=== PATIENT | male | born 1970 | race Caucasian/White ===

== ENCOUNTER 2017-12-22 10:25 | Emergency (ER) | payer OTHER ==
--- NOTE | 2017-12-22 10:31 | EDPHY ---
H & P Source: Patient, RN/MD, EMS Exam Limitations: No limitations Time Seen by Provider: 12/22/17 10:31 HPI/ROS: HPI: This is a 47-year-old male who presents with Chief Complaint: Back pain x2 days Location: Left buttock Quality: Radiating pain Duration: 3 weeks Signs and Symptoms: No bleeding, + radiation from lower back and left buttock down into left posterior thigh, no numbness, no weakness, no tingling, no incontinence, + decreased range of motion, no swelling, + pain, no fever Timing: Worse today Severity: 10 out 10 Context: Patient presents via EMS, with gradually worsening, lower back pain and left buttock pain over the last 3 weeks. This morning he was unable to get out of bed without severe 10/10 radiating pain into his left buttock and left posterior thigh. He reports the pain is intense, sharp, burning, constant. Flexion, extension, rotation increases the pain. He may have had an injury lifting 3 weeks ago but he is"unsure." He reports he has a history of sciatica but has never had been followed by primary care provider and received imaging outpatient. Denies weakness, paresthesias. Modifying Factors: En route EMS gave 100 mcg of fentanyl with no relief Comment: ROS: A comprehensive 10 system review of systems is otherwise negative aside from elements mentioned in the history of present illness. MEDICAL/SURGICAL/SOCIAL HISTORY: Medical history: Generally healthy. Does not take any regular medications. Surgical history: Denies Social history: Employed. CONSTITUTIONAL: Anxious, mild distress, middle-aged white male, lying flat on his back on the ER stretcher, awake and alert HEENT: Atraumatic and normocephalic. NECK: supple, no midline tenderness, flexion 45 degrees, extension 45 degrees, right and left lateral flexion 45 degrees. No meningismus. Cardiovascular: Normal S1/S2, regular rate, regular rhythm, without murmur rub or gallop. PULMONARY/CHEST: Symmetrical and nontender. no crepitus. Clear to auscultation bilaterally. Good air movement. No accessory muscle usage. ABDOMEN: Soft, nondistended, nontender, no ecchymosis. PELVIC: no pain with rocking; bilateral hips flexion 125 degrees, extension 30 degrees, with no pain internal rotation and no pain external rotation. BACK: Lower lumbar reproducible midline tenderness, no paraspinous spasm, deep tendon reflexes 2/2, moderate pain with left straight leg raise, mild pain with right leg straight raise, No foot drop. Achilles reflexes are equal bilaterally. Significant pain increased with transfer in the bed from side to side. EXTREMITIES: 2/2 pulses, strength 5/5, DIP/PIP/MCP flexion/extension intact with good light touch sensation. no deformities, no clubbing, no cyanosis or edema. NEUROLOGICAL: no focal neuro deficits. GCS 15. Light touch sensation intact. SKIN: Warm and dry, no erythema. no rash. Good capillary refill. (Sagrario Jack) Constitutional: Initial Vital Signs Temperature (C) 36.9 C 12/22/17 10:35 Heart Rate 55 L 12/22/17 10:35 Respiratory Rate 16 12/22/17 10:35 Blood Pressure 144/91 H 12/22/17 10:35 O2 Sat (%) 97 12/22/17 10:35 O2 Delivery Mode Room Air Allergies/Adverse Reactions: No Known Allergies Allergy (Unverified 12/22/17 10:34) Home Medications: Medication Instructions Recorded Diazepam [Valium 5 MG (*)] 5 mg PO Q8 PRN #12 tab 12/22/17 methylPREDNISolone [Medrol Dose 1 each PO AD #0 ea 12/22/17 Gerson] oxyCODONE IR [Oxycodone Ir (*)] 5 - 10 mg PO Q6 PRN #12 tab 12/22/17 Medical Decision Making - Diagnostics Imaging Results: Imaging Impressions Lumbar Spine MRI 12/22/17 10:34 Impression: 1. L5-S1: Left foraminal/extraforaminal disk/osteophyte complex versus disk protrusion causing severe left neural foraminal stenosis with probable compression of the exiting left L5 nerve root, with mild right neural foraminal stenosis. 2. T11-T12: Tiny left subarticular disk protrusion without significant spinal canal narrowing or neural foraminal stenosis. 3. Please see above findings at specific disk levels. Findings discussed with Sagrario Jack on 12/22/2017 at 13:23. ED Course/Re-evaluation: I did not see this patient while he was in the emergency department. However his care is discussed with the PA while the patient is in the department. I agree with treatment plan and management (Harpal Brennan) Vital signs reviewed upon arrival. IV access obtained. Patient given IV Toradol 15 mg, IV Decadron 8 mg, IV Valium 5 mg, Lidoderm patch and p.o. Gabapentin upon arrival MRI of the lumbar spine ordered due to midline tenderness. 1122: Patient returned from MRI as unable to tolerate secondary to pain. 2 mg IV Dilaudid given. 1245: Patient ambulated without assistance to the bathroom and back. 1330: Called by Radiology, Dr. Palacios who reports MRI lumbar spine shows left foraminal disc herniation L5-S1 mild in nature with no significant canal involvement there is foraminal involvement at the L5-S1. Reassessed patient who is ambulatory with slow shuffling gait. Significant other at bedside. Given a prescription for Medrol Dosepak, oxycodone, Valium with Neurosurgery follow-up No signs of neurovascular compromise/tenting of skin/compartment syndrome/ extremities and joints examined above and below area of concern and are neurovascularly intact/cauda equina syndrome/epidural hematoma/diskitis. This patient was seen under the supervision of my secondary supervising physician. I evaluated care for this patient independently. Discussed this patient with Dr. Brennan. (Sagrario Jack) Differential Diagnosis: Back pain including but not limited to muscular pain, herniated disc, spine fracture, intra-abdominal causes and urinary tract infection. (Sagrario Jack) - Data Points Medications Given: Discontinued Medications Dexamethasone (Decadron Injection) 8 mg IVP EDNOW ONE Stop: 12/22/17 10:35 Last Admin: 12/22/17 10:50 Dose: 8 mg Diazepam (Valium) 5 mg IVP EDNOW ONE Stop: 12/22/17 10:35 Last Admin: 12/22/17 10:49 Dose: 5 mg Gabapentin (Neurontin) 600 mg PO EDNOW ONE Stop: 12/22/17 10:35 Last Admin: 12/22/17 10:47 Dose: 600 mg Hydromorphone HCl (Dilaudid) 2 mg IVP EDNOW ONE Stop: 12/22/17 11:54 Last Admin: 12/22/17 11:59 Dose: 2 mg Ketorolac Tromethamine (Toradol) 15 mg IVP EDNOW ONE Stop: 12/22/17 10:35 Last Admin: 12/22/17 10:48 Dose: 15 mg Miscellaneous Medication (Icy Hot Lidocaine/Menthol 4%/1% Patch) 1 patch TD EDNOW ONE Stop: 12/22/17 10:35 Last Admin: 12/22/17 10:54 Dose: 1 patch Departure - Departure Disposition: Home, Routine, Self-Care Clinical Impression: Lumbar disc herniation with radiculopathy Condition: Good Instructions: Lumbar Disc Herniation (ED) Additional Instructions: Take Tylenol 650 mg every 4 hours and/or Ibuprofen 600 mg every 8 hours with food as needed for pain. Use oxycodone every 6 hours as needed for severe/break through pain. Use Valium every 8 hr as needed for muscle spasms. Take Medrol Dosepak as directed. Start taking the steroids tomorrow. Tried to walk intermittently throughout the day. Follow-up with Neurosurgery in the next 5-10 days for evaluation. Return to the ER immediately if you have new or worsening back pain, fevers/ chills, flu like symptoms, incontinence or inability to urinate or defecate, weakness, paralysis, or any other symptom that concerns you Referrals: Amrit Hoyt MD [Medical Doctor] - As per Instructions Prescriptions: Diazepam [Valium 5 MG (*)] 5 mg PO Q8 PRN #12 tab PRN Reason: Spasms methylPREDNISolone [Medrol Dose Gerson] 1 each PO AD #0 ea oxyCODONE IR [Oxycodone Ir (*)] 5 - 10 mg PO Q6 PRN #12 tab PRN Reason: Pain, Severe
[2017-12-22] MEDS ORDERED: GABAPENTIN 300 MG CAP PO ONE (10:34)
[2017-12-22] MEDS ORDERED: KETOROLAC 15 MG/1 ML SDV IVP ONE (10:34)
[2017-12-22] MEDS ORDERED: DEXAMETHASONE 4 MG/ML VIAL IVP ONE (10:34)
[2017-12-22] MEDS ORDERED: LIDOCAINE 4%/MENTHOL 1% PATCH TD ONE (10:34)
[2017-12-22] MEDS ORDERED: DIAZEPAM 5 MG/ML 1 ML SYR IVP ONE (10:34)
[2017-12-22] MEDS ORDERED: HYDROmorphONE/DILAUDID 2 MG/ML INJ IVP ONE (11:53)
[2017-12-22 13:52] VITALS: BP 122/83
[2017-12-22] MEDS ORDERED: PATCH REMOVAL 1 EA PATCH TD SCH (21:00)
== END 2017-12-22 13:51 | disposition home or self-care (01) ==
DX: M51.17 Intervertebral disc disorders with radiculopathy, lumbosacral region (principal)
CPT/HCPCS: 96374; J1100; J1170; J1885; J3360

== ENCOUNTER 2017-12-26 06:41 | Emergency (ER) | payer OTHER ==
[2017-12-26] MEDS ORDERED: HYDROmorphONE/DILAUDID 1 MG/ML INJ IVP PRN (07:00)
[2017-12-26] MEDS ORDERED: KETOROLAC 15 MG/1 ML SDV IVP ONE (07:00)
[2017-12-26] MEDS ORDERED: DIAZEPAM 5 MG/ML 1 ML SYR IVP ONE (07:02)
--- NOTE | 2017-12-26 07:19 | EDPHY ---
H & P Stated Complaint: pinched disc, lower back pain Source: Patient, EMS Exam Limitations: No limitations - Personal History Current Tetanus Diphtheria and Acellular Pertussis (TDAP): Yes - Medical/Surgical History Hx Asthma: No Hx Chronic Respiratory Disease: No Hx Diabetes: No Hx Cardiac Disease: No Hx Renal Disease: No Hx Cirrhosis: No Hx Alcoholism: No Hx HIV/AIDS: No Hx Splenectomy or Spleen Trauma: No Other PMH: hernia surgery, - Social History Smoking Status: Never smoked Time Seen by Provider: 12/26/17 06:42 HPI/ROS: HPI The patient presents with lower back pain which has been present for the last 5 days which is severe, aching, sharp and radiates down his left leg. He was seen in the emergency department for this 4 days ago. At that time he was given medication and had an MRI of his lumbar spine which revealed L5-S1 neural foraminal stenosis with compression of the L5 nerve root by disc protrusion verses disc/osteophyte complex. He says he was able to walk out of the emergency department and felt well. However over the last 4 days his pain is persisted. He says he has been mostly in bed, he has difficulty sleeping at night. He says he can stand for about 4-5 seconds before he develops shooting pain down his left leg. This is associated with numbness and tingling. He does not have any bowel or bladder incontinence. He has not had any fevers. He does not have any weakness of his leg. He has not had any new injuries. He is taking a Medrol Dosepak, oxycodone, Tylenol, ibuprofen and Valium. He has an appointment in [address] min of Neurosurgery. He has a past history of sciatica though his symptoms have never been this severe. He is brought in by ambulance and received 25 mg of ketamine which has improved his symptoms REVIEW OF SYSTEMS 10 systems were reviewed and negative with the exception of the elements mentioned in the history of present illness. PMHx: Sciatica, lumbar radiculopathy as detailed above Soc Hx: Housed, employed PHYSICAL General Appearance: Alert, tearful Eyes: Pupils equal and round no pallor or injection ENT, Mouth: Mucous membranes moist Respiratory: There are no retractions, lungs are clear to auscultation Cardiovascular: Regular rate and rhythm Gastrointestinal: Abdomen is soft and non-tender, no masses, bowel sounds normal Back: There is tenderness of his lower lumbar spine at the midline and in the left paraspinal region Neurological: A&O, 5/5 strength in his hip flexors, extensors, knee flexors extensors, ankle flexion and extension, plantar and dorsiflexion, there is sensation intact to light touch throughout his legs Skin: Warm and dry, no rashes Musculoskeletal: Neck is supple non tender Extremities: symmetrical, full range of motion Psychiatric: Patient is oriented X 3, there is no agitation (Shaunna Campbell) Constitutional: Initial Vital Signs Temperature (C) 36.7 C 12/26/17 06:43 Heart Rate 73 12/26/17 06:43 Respiratory Rate 18 12/26/17 06:43 Blood Pressure 135/103 H 12/26/17 06:43 O2 Sat (%) 99 12/26/17 06:43 O2 Delivery Mode Room Air Allergies/Adverse Reactions: No Known Allergies Allergy (Unverified 12/26/17 06:43) Home Medications: Medication Instructions Recorded Diazepam [Valium 5 MG (*)] 5 mg PO Q8 PRN #12 tab 12/22/17 methylPREDNISolone [Medrol Dose 1 each PO AD #0 ea 12/22/17 Gerson] oxyCODONE IR [Oxycodone Ir (*)] 5 - 10 mg PO Q6 PRN #12 tab 12/22/17 HYDROmorphone HCL [Dilaudid 2 mg 2 mg PO Q6 PRN #20 tab 12/26/17 (*)] Medical Decision Making Differential Diagnosis: This is a relatively healthy 47-year-old man who presents with several days of low back pain with radiation to his leg with MRI demonstrating L5-S1 disc protrusion causing neural foraminal stenosis and likely nerve root compression. He does not have any bowel or bladder changes or motor weakness on exam. He has been taking maximal medical therapy at home, however his pain persists. He is awaiting a neuro surgical appointment. He has received ketamine in route and is currently feeling a bit "loopy", though his pain is improved. I suspect his symptoms are related to lumbar radiculopathy. I am not concerned about cauda equina, epidural abscess. Plan for treatment here with pain medications. I have offered him admission to the hospital, however he is not sure if you would like to do this. At 7:15 a.m., the case is signed out to the oncoming provider Dr. Lynch will reassess the patient. (Shaunna Campbell) Other Provider: This patient presents with continued acute exacerbation of low back pain, not controlled with previously prescribed medications. The patient's description of pain seems consistent with sciatica/musculoskeletal back pain, with pain exacerbated by sitting and standing. We discussed further testing to ensure no other pathology was present, but patient has had a recent MRI and he declines additional testing at this time. He had good relief with IV diluadid here in the ED and he has an appointment with NSG already scheduled for Thursday. I offered him admission to the hospital for pain control and observation but he declines. He is comfortable with the plan for trial of oral dilaudid. I think some of his symptoms can be attributed to non-compliance with medrol dose-gerson. We discussed strict return precautions. (Terence Lynch) - Data Points Medications Given: Discontinued Medications Diazepam (Valium) 5 mg IVP EDNOW ONE Stop: 12/26/17 07:03 Last Admin: 12/26/17 07:08 Dose: 5 mg Hydromorphone HCl (Dilaudid) 1 mg IVP Q4 PRN PRN Reason: Pain, Severe Unable to Take PO Stop: 01/05/18 06:59 Last Admin: 12/26/17 08:32 Dose: 1 mg Hydromorphone HCl (Dilaudid) 0.5 mg IVP EDNOW ONE Stop: 12/26/17 09:55 Last Admin: 12/26/17 10:05 Dose: 0.5 mg Ketorolac Tromethamine (Toradol) 15 mg IVP EDNOW ONE Stop: 12/26/17 07:01 Last Admin: 12/26/17 07:09 Dose: 15 mg Miscellaneous Medication (Icy Hot Lidocaine/Menthol 4%/1% Patch) 1 patch TD EDNOW ONE Stop: 12/26/17 09:56 Last Admin: 12/26/17 10:06 Dose: 1 patch Departure - Departure Disposition: Home, Routine, Self-Care Clinical Impression: Lumbar radiculopathy, acute Condition: Good Instructions: Lumbar Radiculopathy (ED), Lower Back Exercises (ED) Additional Instructions: I recommend that you follow up with the neurosurgeons as planned. You should make sure to take your pain medication on schedule. Return to the ED for fever, abdominal pain, inability to walk, numbness or other concerns. Purchase and use [id number] lidocaine patches as directed. Referrals: Amirt Hoyt MD [Medical Doctor] - As per Instructions Prescriptions: HYDROmorphone HCL [Dilaudid 2 mg (*)] 2 mg PO Q6 PRN #20 tab PRN Reason: Pain, Breakthrough
[2017-12-26] MEDS ORDERED: HYDROmorphONE/DILAUDID 2 MG/ML INJ IVP ONE (09:54)
[2017-12-26] MEDS ORDERED: LIDOCAINE 4%/MENTHOL 1% PATCH TD ONE (09:55)
[2017-12-26 10:15] VITALS: BP 128/88
[2017-12-26] MEDS ORDERED: PATCH REMOVAL 1 EA PATCH TD SCH (21:00)
== END 2017-12-26 10:14 | disposition home or self-care (01) ==
LOC: EDUNIT#
DX: M51.26 Other intervertebral disc displacement, lumbar region (principal); M48.061 Spinal stenosis, lumbar region without neurogenic claudication; M51.16 Intervertebral disc disorders with radiculopathy, lumbar region
CPT/HCPCS: 96374; J1170; J1885; J3360